=== PATIENT | male | born 1940 | race Caucasian/White ===

== ENCOUNTER 2018-03-22 02:13 | Inpatient (IN) | payer MEDICARE ==
[~2018-03-22] VITALS: Ht 167.6 cm; Wt 44.8 kg
[2018-03-22] MEDS ORDERED: RT-ALBUTEROL/IPRATROPIUM 3 ML (DUONEB) VIAL ONE (02:21)
--- NOTE | 2018-03-22 02:42 | ED General ---
General Stated Complaint: FALL, LEFT & RT KNEE PAIN Source of Information: Patient (LIMITED HISTORIAN), Family (DAUGHTER) History of Present Illness Date Seen by Provider: Mar 22, 2018 Time Seen by Provider: 02:14 Initial Comments PT ARRIVES VIA POV FROM [place]. PT REPORTEDLY "FELL" --NOT WITNESSED. WAS ASLEEP PT STATES HE THINKS HE GOT UP TO GET A DRINK, AND "BEEN SEEING DOUBLE" AND THEN THINKS HE "FELL" --STATES HE IS NOT SURE WHAT HAPPENED. STATES HE HURTS ALL OVER THINKS HE MIGHT HAVE HIT HIS RIBS, BUT IS NOT SURE. DOES C/O PAIN TO LEFT RIBS UNABLE TO LOCALIZE PAIN ANYWHERE ELSE. NO OTHER RELEVANT INFORMATION IS OBTAINABLE FROM PT IS NOT REALLY TALKING OR ANSWERING QUESTIONS. DAUGHTER IS HERE AND GIVES ALL INFORMATION SHE STATES THAT WHEN SHE GOT THERE, HE WAS BASICALLY ON HIS KNEES AND WAS WEDGED IN A FAIRLY SMALL SPACE BETWEEN THE BED AND A PIECE OF FURNITURE. SHE STATES THAT BASED ON HIS POSITION, IT DID NOT APPEAR THAT HE COULD HAVE HIT HIS HEAD ON ANYTHING DAUGHTER REPORTS THAT PT IS MOSTLY CHAIR-BOUND, BUT THE LAST 3-4 DAYS HE HAS HAD A SIGNIFICANT DECLINE OVERALL HAS NOT BEEN OUT OF BED MUCH AT ALL PT HAS NOT BEEN EATING THE LAST FEW DAYS AND HAS HAD MINIMAL FLUID INTAKE THE LAST FEW DAYS SHE STATES HE HAS HAD AN INCREASED COUGH AND IT HAS BEEN MORE PRODUCTIVE THE LAST FEW DAYS NO KNOWN FEVER PT WEARS HOME O2 AT 4L/NC AND THEY BROUGHT HIS PORTABLE O2 IN THE CAR, BUT FAMILY DOES NOT KNOW IF IT WAS TURNED ON/ WORKING ON THE WAY HERE O2 SAT IN 60'S ON ARRIVAL TO ER PT HAS HISTORY OF PULMONARY FIBROSIS DAUGHTER STATES VERY EMPHATICALLY THAT HE IS DNR/DNI AND NO AGGRESSIVE MEASURES OF ANY KIND ARE TO BE DONE SHE STATES 'HE HAS BEEN READY TO GO FOR A LONG TIME" PCP: FT. MARY ORSHELLIE ARBITRATOR: CORINNE HATFIELD Allergies and Home Medications Allergies Coded Allergies: Penicillins (Verified Allergy, Unknown, 03/22/18) iodine (Verified Allergy, Unknown, 03/22/18) Patient Home Medication List Home Medication List Reviewed: Yes Review of Systems Review of Systems Constitutional: see HPI, malaise, weakness, weight loss (USED TO WEIGHT 180 LBS --NOW WEIGHS LESS THAN 100 LBS. IS UNCLEAR HOW LONG THIS WEIGHT LOSS HAS BEEN GOING ON) Respiratory: see HPI, cough, short of breath Cardiovascular: No chest pain, No edema Gastrointestinal: see HPI; No abdominal pain; constipation, loss of appetite; No nausea, No vomiting Genitourinary: decreased output Musculoskeletal: see HPI Psychiatric/Neurological: Denies Headache, Denies Numbness, Denies Paresthesia Hematologic/Lymphatic: No Symptoms Reported Past Honmvdf-Tkvonm-Bmrerf Hx Patient Social History Alcohol Use: Denies Use Recreational Drug Use: No Smoking Status: Former Smoker Type Used: Cigarettes Recent Foreign Travel: No Contact w/Someone Who Travel: No Past Medical History Surgeries: Yes (BILATERAL ANKLE SURGERIES) Cardiac, CABG, Orthopedic Respiratory: Yes (PULMONARY FIBROSIS; HOME O2 AT 4L/NC CONTINUOUSLY) Cardiac: Yes Atrial Fibrillation, Coronary Artery Disease, Heart Attack, High Cholesterol, Hypertension Neurological: Yes Seizure Disorder Genitourinary: No Gastrointestinal: Yes Gastroesophageal Reflux Musculoskeletal: Yes (BILATERAL ANKLE SURGERY) Endocrine: No HEENT: No Psychosocial: No Integumentary: No Blood Disorders: No Physical Exam Vital Signs Vital Signs - First Documented 03/22/18 03/22/18 02:20 02:31 Temp 97.0 Pulse 110 Resp 24 B/P (MAP) 135/84 (101) Pulse Ox 93 O2 Delivery OxyMask O2 Flow Rate 4.00 Capillary Refill : Height, Weight, BMI Height: '" Weight: lbs. oz. kg; BMI Method: General Appearance: Cachetic (SEVERELY EMACIATED. ), Severe Distress (PATEL/PALE , SEVERELY DYSPNEIC, WITH DECREASED MENTATION, VERY LETHARGIC. ) HEENT: PERRL/EOMI Neck: Normal Inspection, Non Tender, Supple Respiratory: Accessory Muscle Use, Decreased Breath Sounds, Respiratory Distress, Other (TENDERNESS TO BILATERAL RIB AREAS) Cardiovascular: Irregularly Irregular, Tachycardia Gastrointestinal: Non Tender, Soft Back: Normal Inspection, No CVA Tenderness, No Vertebral Tenderness Extremity: No Pedal Edema, Other (DISTSAL MOTOR/SENSORY/VASCULAR INTACT. LEFT HIP AND PROXIMAL THIGH TENDERNESS.NO SHORTENING OR ROTATION. ) Neurologic/Psychiatric: No Motor/Sensory Deficits (GROSSLY INTACT, BUT LIMITED EXAM DUE TO RESPIRATORY DISTRESS AND DECREASED MENTATION. ), Other (LETHARGIC ON ARRIVAL. DECREASED MENTATION. ) Skin: Warm/Dry, Pallor (PATEL COLOR. ), Other (POOR TURGOR; NO EXTERNAL EVIDENCE OF TRAUMA) Focused Exam Lactate Level 03/22/18 02:25: Lactic Acid Level 4.07*H 03/22/18 05:06: Lactic Acid Level 0.98 Lactic Acid Level Laboratory Tests Test 03/22/18 05:06 Lactic Acid Level 0.98 MMOL/L (0.50-2.00) Progress/Results/Core Measures Suspected Sepsis SIRS Temperature: Pulse: Respiratory Rate: Laboratory Tests 03/22/18 02:25: White Blood Count 23.8H Blood Pressure / Mean: 03/22/18 02:25: Lactic Acid Level 4.07*H 03/22/18 05:06: Lactic Acid Level 0.98 Laboratory Tests 03/22/18 02:25: Creatinine 0.84, INR Comment 1.5H, Platelet Count 365, Total Bilirubin 0.6 Results/Orders Lab Results Laboratory Tests Test 03/22/18 02:25 03/22/18 02:38 03/22/18 05:06 Range/Units White Blood Count 23.8 H 4.3-11.0 10^3/uL Red Blood Count 4.13 L 4.35-5.85 10^6/uL Hemoglobin 13.6 13.3-17.7 G/DL Hematocrit 41 40-54 % Mean Corpuscular Volume 100 H 80-99 FL Mean Corpuscular Hemoglobin 33 25-34 PG Mean Corpuscular Hemoglobin Concent 33 32-36 G/DL Red Cell Distribution Width 12.7 10.0-14.5 % Platelet Count 365 130-400 10^3/uL Mean Platelet Volume 10.6 H 7.4-10.4 FL Neutrophils (%) (Auto) 87 H 42-75 % Lymphocytes (%) (Auto) 3 L 12-44 % Monocytes (%) (Auto) 10 0-12 % Eosinophils (%) (Auto) 0 0-10 % Basophils (%) (Auto) 0 0-10 % Neutrophils # (Auto) 20.8 H 1.8-7.8 X 10^3 Lymphocytes # (Auto) 0.6 L 1.0-4.0 X 10^3 Monocytes # (Auto) 2.4 H 0.0-1.0 X 10^3 Eosinophils # (Auto) 0.0 0.0-0.3 10^3/uL Basophils # (Auto) 0.0 0.0-0.1 10^3/uL Neutrophils % (Manual) 80 % Lymphocytes % (Manual) 3 % Monocytes % (Manual) 10 % Band Neutrophils 7 % Blood Morphology Comment NORMAL Prothrombin Time 18.1 H 12.2-14.7 SEC INR Comment 1.5 H 0.8-1.4 Activated Partial Thromboplast Time 35 24-35 SEC Sodium Level 142 135-145 MMOL/L Potassium Level 3.8 3.6-5.0 MMOL/L Chloride Level 99 98-107 MMOL/L Carbon Dioxide Level 29 21-32 MMOL/L Anion Gap 14 5-14 MMOL/L Blood Urea Nitrogen 15 7-18 MG/DL Creatinine 0.84 0.60-1.30 MG/DL Estimat Glomerular Filtration Rate > 60 BUN/Creatinine Ratio 18 Glucose Level 171 H 70-105 MG/DL Lactic Acid Level 4.07 *H 0.98 0.50-2.00 MMOL/L Calcium Level 9.3 8.5-10.1 MG/DL Corrected Calcium 9.9 8.5-10.1 MG/DL Magnesium Level 2.1 1.8-2.4 MG/DL Total Bilirubin 0.6 0.1-1.0 MG/DL Aspartate Amino Transf (AST/SGOT) 36 H 5-34 U/L Alanine Aminotransferase (ALT/SGPT) 27 0-55 U/L Alkaline Phosphatase 135 40-136 U/L Total Creatine Kinase 166 30-200 U/L Creatine Kinase MB 5.6 <6.6 NG/ML Troponin I 0.232 <0.028 NG/ML B-Type Natriuretic Peptide 197.3 H <100.0 PG/ML Total Protein 7.5 6.4-8.2 GM/DL Albumin 3.3 3.2-4.5 GM/DL Digoxin Level < 0.30 L 0.80-2.00 NG/ML Urine Color YELLOW Urine Clarity CLEAR Urine pH 5 5-9 Urine Specific [place] 1.020 1.016-1.022 Urine Protein 3+ H NEGATIVE Urine Glucose (UA) NEGATIVE NEGATIVE Urine Ketones NEGATIVE NEGATIVE Urine Nitrite NEGATIVE NEGATIVE Urine Bilirubin NEGATIVE NEGATIVE Urine Urobilinogen 1 NORMAL MG/DL Urine Leukocyte Esterase 1+ H NEGATIVE Urine RBC (Auto) 1+ H NEGATIVE Urine RBC 2-5 H /HPF Urine WBC 0-2 /HPF Urine Squamous Epithelial Cells 2-5 /HPF Urine Crystals PRESENT H /LPF Urine Amorphous Sediment FEW JESSICA URATES H /LPF Urine Bacteria TRACE /HPF Urine Casts NONE /LPF Urine Mucus MODERATE H /LPF Urine Culture Indicated NO Micro Results Microbiology 03/22/18 Influenza Types A,B Antigen (GIL) - Final, Complete My Orders Orders - MIRTA QUEZADA DO Albuterol/Ipra Inhalation Soln (Duoneb I (03/22/18 02:21) Saline Lock/Iv-Start (03/22/18 02:33) Ekg Tracing (03/22/18 02:33) Monitor-Rhythm Ecg Trace Only (03/22/18 02:33) BNP (03/22/18 02:33) Cbc With Automated Diff (03/22/18 02:33) Comprehensive Metabolic Panel (03/22/18 02:33) Creatine Kinase (03/22/18 02:33) Creatine Kinase Mb (03/22/18 02:33) Magnesium (03/22/18 02:33) Protime With Inr (03/22/18 02:33) Partial Thromboplastin Time (03/22/18 02:33) Troponin I (03/22/18 02:33) Ua Culture If Indicated (03/22/18 02:33) Chest 1 View, Ap/Pa Only (03/22/18 02:33) Pelvis (03/22/18 02:33) Rt Request For Service (03/22/18 02:33) Albuterol/Ipra Inhalation Soln (Duoneb I (03/22/18 02:45) Svn Small Volume Nebulizer (03/22/18 02:33) Catheter(Urinary) Insert & Ass 03,15 (03/22/18 02:37) Dilantin (Phenytoin) (03/22/18 02:41) Digoxin (03/22/18 02:25) Manual Differential (03/22/18 02:25) Saline Lock/Iv-Start (03/22/18 02:56) Lactated Ringers (Lr 1000 Ml Iv Solution (03/22/18 02:56) Ceftriaxone For Iv Use (Rocephin For I (03/22/18 03:45) Ct Chest/Abdomen/Pelvis Wo (03/22/18 03:31) Lactic Acid Analyzer (03/22/18 03:33) Blood Culture (03/22/18 03:33) Influenza A And B Antigens (03/22/18 03:33) Ceftriaxone For Iv Use (Rocephin For I (03/22/18 04:16) Ns (Ivpb) (Sodium Chloride 0.9% Ivpb Bag (03/22/18 04:16) Saline Lock/Iv-Start (03/22/18 05:27) Ns Iv 1000 Ml (Sodium Chloride 0.9%) (03/22/18 05:27) Medications Given in ED Current Medications Medications Dose Ordered Sig/Aiyana Route Start Time Stop Time Status Last Admin Dose Admin Albuterol/ Ipratropium 3 ml STK-MED ONCE .ROUTE 03/22/18 02:21 03/22/18 02:25 DC 03/22/18 02:31 3 ML Ceftriaxone Sodium 1000 mg/ Sodium Chloride 60 ml @ 100 mls/hr ONCE ONCE IV 03/22/18 03:45 03/22/18 04:39 DC 03/22/18 04:20 100 MLS/HR Lactated Ringer's 1,000 ml @ 0 mls/hr Q0M ONCE IV 03/22/18 02:56 03/22/18 02:57 DC 03/22/18 03:07 999 MLS/HR Vital Signs/I&O 03/22/18 03/22/18 02:20 02:31 Temp 97.0 Pulse 110 Resp 24 B/P (MAP) 135/84 (101) Pulse Ox 93 O2 Delivery OxyMask O2 Flow Rate 4.00 Capillary Refill : Progress Note : Progress Note INITIAL O2 SATS 60-65% ON ROOM AIR ON ARRIVAL PT VERY LETHARGIC AND REQUIRES MULTIPLE STAFF MEMBERS TO LIFT HIM AND PLACE HIM ON ER CART PT IN SEVERE RESPIRATORY DISTRESS, AND UNABLE TO REALLY TALK ON ARRIVAL AND WITH DECREASED MENTATION, CAN ONLY UTTER 1 OR 2 WORDS AT A TIME AND APPEARS SOMEWHAT CONFUSED ON ARRIVAL PT IMMEDIATELY PLACED ON O2 AT 10L VIA OXIMASK--O2 SATS IMMEDIATELY UP TO UPPER 90'S PT GIVEN DUONEB TREATMENT IMPROVEMENT IN MENTATION AND LESS DYSPNEIC AND PT ABLE TO TALK IN 2-4 WORD SENTENCES, AND PT NO LONGER APPEARS CONFUSED. PT HAS NO C/O PAIN AT ANY TIME DURING ER STAY ECG Initial ECG Impression Date: Mar 22, 2018 Initial ECG Impression Time: 02:23 Initial ECG Rate: 99 Initial ECG Rhythm: Normal Sinus (RBBB) Initial ECG Comparisson: No Previous ECG Available Diagnostic Imaging Comments CXR--FIBROSIS, RIGHT MID LUNG INFILTRATE, PENDING RADIOLOGIST REVIEW PELVIS--?ABNORMALITY LEFT HIP? PENDING RADIOLOGIST REVIEW CT CHEST / ABDOMEN/ PELVIS--NO FRACTURES, CHRONIC FIBROTIC CHANGES OF LUNGS; RIGHT MID LUNG INFILTRATE, POSSIBLE ASPIRATION, LARGE RECTAL FECAL IMPACTION 13 CM X 9.5 CM X 9.6 CM --PER [facility] VIA FAX AT [id number] Reviewed: Reviewed by [facility] (Admissions) [id number]--SPOKE WITH DR. WARD, HOSPITALIST, ACCEPTS PT FOR ADMIT. Impression Primary Impression: RIGHT SIDED PNEUMONIA Additional Impressions: Sepsis Acute and chronic respiratory failure Status post fall SEVERE HYPOXIA Emaciation Influenza B Pulmonary fibrosis Disposition: ADMITTED INPATIENT Condition: Improved Admissions Decision to Admit Reason: Admit from ER (General) Decision to Admit/Date: Mar 22, 2018 Time/Decision to Admit Time: 05:25 MIRTA QUEZADA DO Mar 22, 2018 02:42
[2018-03-22 02:44] LABS: BASOPHILS % (AUTO) 0 % (0-10); EOSINOPHILS % (AUTO) 0 % (0-10); HEMATOCRIT 41 % (40-54); HEMOGLOBIN 13.6 G/DL (13.3-17.7); LYMPHOCYTES # (AUTO) 0.6 X 10^3 (1.0-4.0); LYMPHOCYTES % (AUTO) 3 % (12-44); MEAN CORPUSCULAR HEMOGLOBIN 33 PG (25-34); MEAN CORPUSCULAR HGB CONC 33 G/DL (32-36); MEAN CORPUSCULAR VOLUME 100 FL (80-99); MEAN PLATELET VOLUME 10.6 FL (7.4-10.4); MONOCYTES # (AUTO) 2.4 X 10^3 (0.0-1.0); MONOCYTES % (AUTO) 10 % (0-12); NEUTROPHILS # (AUTO) 20.8 X 10^3 (1.8-7.8); NEUTROPHILS % (AUTO) 87 % (42-75); PLATELET COUNT 365 10^3/uL (130-400); RED CELL DISTRIBUTION WIDTH 12.7 % (10.0-14.5); WHITE BLOOD COUNT 23.8 10^3/uL (4.3-11.0)
[2018-03-22] MEDS ORDERED: RT-ALBUTEROL/IPRATROPIUM 3 ML (DUONEB) VIAL INH ONE (02:45)
[2018-03-22 02:46] LABS: BILIRUBIN,URINE NEGATIVE (NEGATIVE); CLARITY,URINE CLEAR; COLOR,URINE YELLOW; GLUCOSE, URINE (UA) NEGATIVE (NEGATIVE); KETONES,URINE NEGATIVE (NEGATIVE); LEUKOCYTE ESTERASE ,URINE 1+ (NEGATIVE); NITRITE,URINE NEGATIVE (NEGATIVE); PH,URINE 5 (5-9); PROTEIN,URINE 3+ (NEGATIVE); UROBILINOGEN,URINE 1 MG/DL (NORMAL)
[2018-03-22 02:54] LABS: BACTERIA,URINE TRACE /HPF; WBC,URINE 0-2 /HPF
[2018-03-22 02:55] LABS: AMORPHOUS SEDIMENT,UR FEW AMOR URATES /LPF
[2018-03-22 02:56] LABS: ALANINE AMINOTRANSFERASE 27 U/L (0-55); ALBUMIN 3.3 GM/DL (3.2-4.5); ALKALINE PHOSPHATASE 135 U/L (40-136); BILIRUBIN,TOTAL 0.6 MG/DL (0.1-1.0); BUN/CREATININE RATIO 18; CALCIUM 9.3 MG/DL (8.5-10.1); CARBON DIOXIDE 29 MMOL/L (21-32); CHLORIDE 99 MMOL/L (98-107); CREATINE KINASE 166 U/L (30-200); CREATININE SERUM 0.84 MG/DL (0.60-1.30); GFR ESTIMATED > 60; GLUCOSE 171 MG/DL (70-105); MAGNESIUM 2.1 MG/DL (1.8-2.4); POTASSIUM 3.8 MMOL/L (3.6-5.0); SODIUM 142 MMOL/L (135-145); TOTAL PROTEIN 7.5 GM/DL (6.4-8.2)
[2018-03-22] MEDS ORDERED: LACTATED RINGERS 1,000 ML IV ONE (02:56)
[2018-03-22 03:00] LABS: INR 1.5 (0.8-1.4); PROTHROMBIN TIME PATIENT 18.1 SEC (12.2-14.7)
[2018-03-22 03:03] LABS: CREATINE KINASE MB 5.6 NG/ML (<6.6)
[2018-03-22 03:09] LABS: BAND NEUTROPHILS 7 %; LYMPHOCYTES % (MANUAL) 3 %; MONOCYTES % (MANUAL) 10 %; NEUTROPHILS % (MANUAL) 80 %; RBC MORPH NORMAL
[2018-03-22] MEDS ORDERED: cefTRIAXone 1,000 MG IV (ROCEPHIN) VIAL ONE (04:16)
[2018-03-22] MEDS ORDERED: NS (IVPB) 50 ML ONE (04:16)
[2018-03-22] MEDS: cefTRIAXone FOR IV USE 1,000 MG in NS (IVPB) 50 ML IV ONE ×2 (04:20→04:38)
[2018-03-22] MEDS ORDERED: NS IV 1000 ML 1,000 ML IV ONE (05:27)
--- NOTE | 2018-03-22 06:13 | Diagnostic Imaging Report ---
PROCEDURE: CT chest, abdomen, and pelvis without contrast. TECHNIQUE: Multiple contiguous axial images were obtained through the chest, abdomen, and pelvis without the use of intravenous contrast. INDICATION: Trauma, fall. COMPARISON: Chest radiograph of earlier the same day FINDINGS: CT CHEST: No endoluminal nodule within the trachea. A small amount of retained secretions are present. Diffuse pulmonary fibrosis is present and greatest in the lung bases. Superimposed airspace consolidations are present in the right upper lobe. No pleural effusion or pneumothorax. No axillary lymphadenopathy. No mediastinal, discrete hilar or juxtaphrenic lymphadenopathy. Heart is mildly enlarged without pericardial effusion. Extensive coronary artery calcifications are present and status post CABG. No displaced rib fractures. No compression deformity within the thoracic vertebrae. CT ABDOMEN AND PELVIS: Assessment of the abdominal viscera is very limited by lack of IV contrast and intraperitoneal fat. The unenhanced liver, spleen and pancreas are grossly normal. Assessment of the pancreas is very limited on this exam. No adrenal mass. No renal or ureteral stones. No obstructive uropathy. Urinary bladder is decompressed by a Arceo catheter. A large volume of stool is present with the rectum which could relate to fecal impaction. No dilated loops of bowel to indicate bowel obstruction. No definitive lymphadenopathy although assessment is very limited. No compression deformity within the lumbar vertebrae. No fracture in the proximal femurs. No insufficiency fracture within the sacral ala. IMPRESSION: CHEST: 1. No acute traumatic injury in the chest. No rib fractures. 2. Severe pulmonary fibrosis with superimposed airspace consolidations in the right upper lobe. Findings are likely due to pneumonia, but an acute exacerbation of interstitial lung disease could also give this appearance. ABDOMEN AND PELVIS: 1. No evidence of acute traumatic injury in the abdomen or pelvis by limited noncontrast examination. 2. Fecal impaction. 3. Findings are in agreement with the preliminary report. Dictated by: Dictated on workstation # [id number]
--- NOTE | 2018-03-22 06:50 | NUR ---
PELON MAXWELL admitted to room 411-1, with an admitting diagnosis of PNEUMONIA, HYPOXIA/ACUTE ON CHRONIC RESPIRATORY FAILURE, PULMONARY FIBROSIS, RECTAL IMPACTION, GENERALIZED WEAKNESS, S/P FALLS, SEPSIS, INFLUENZA B, on 03/22/18 from ED via CART, accompanied by STAFF, , AND SON IN LAW.PELON MAXWELL introduced to surroundings, call light, bed controls, phone, TV, temperature control, lights, meal times, smoking policy, visitor policy, side rail policy, bathrooms and showers. Patient Rights given to patient in the handbook. PELON MAWXELL verbalizes understanding that [facility] is not responsible for the loss or damage to any personal effects or valuables that are kept in the patients possession during their hospitalization. THE PATIENT'S PLAN OF CARE WAS DISCUSSED WITH THE PATIENT, HE DENIES ANY QUESTIONS OR CONCERNS.
--- NOTE | 2018-03-22 06:58 | Diagnostic Imaging Report ---
INDICATION: Fall with shortness of air. COMPARISON: None available. FINDINGS: Coarse interstitial opacities in the lung bases are compatible with pulmonary fibrosis. There is superimposed consolidation in the right midlung. Heart is enlarged. No pneumothorax. No pleural effusion. IMPRESSION: 1. Probable pneumonia superimposed on pulmonary fibrosis. Dictated by: Dictated on workstation # [id number]
--- NOTE | 2018-03-22 06:59 | Diagnostic Imaging Report ---
INDICATION: Pain after fall. COMPARISON: None available. TECHNIQUE: Single AP view of the pelvis. FINDINGS: No acute fracture in the proximal femurs. No hip dislocation. No diastases of the symphysis pubis or SI joints. Assessment for fracture of the osseous pelvis is very limited due to extensive overlying bowel gas and stool. IMPRESSION: No displaced fracture or traumatic diastases. Dictated by: Dictated on workstation # [id number]
[2018-03-22 07:00] VITALS: BP 112/76
[2018-03-22 07:42] VITALS: BP 112/76
--- NOTE | 2018-03-22 10:20 | Pulmonary Consultation ---
History of Present Illness History of Present Illness Date of Consultation 03/22/18 10:17 Time Seen by Provider: 13:12 Date of Admission History of Present Illness 77YO with hx of severe oxygen dependent COPD/pulmonary fibrosis presented to ED s/p unwitnessed fall no LOC and did not hit his heads. Pt complains of left rib pain. Pt is mostly chair bound however over the last 3-4 days has had a significant decline. PT has had increased productive cough over the last few days. I am consulted for pulmonary management. Allergies and Home Medications Allergies Coded Allergies: Penicillins (Verified Allergy, Unknown, 03/22/18) iodine (Verified Allergy, Unknown, 03/22/18) Past Znwupwj-Emcmjh-Vcsnga Hx Patient Social History Alcohol Use: Denies Use Recreational Drug Use: No Smoking Status: Former Smoker Type Used: Cigarettes Recent Foreign Travel: No Contact w/Someone Who Travel: No Recent Infectious Disease Expo: No Recent Hopitalizations: No Immunizations Up To Date Date of Influenza Vaccine: Jan 18, 2018 Seasonal Allergies Seasonal Allergies: No Past Medical History Surgeries: Yes (BILATERAL ANKLE SURGERIES) Cardiac, CABG, Orthopedic Respiratory: Yes (PULMONARY FIBROSIS; HOME O2 AT 4L/NC CONTINUOUSLY) Pulmonary Fibrosis Cardiac: Yes Atrial Fibrillation, Coronary Artery Disease, Heart Attack, High Cholesterol, Hypertension Neurological: Yes Seizure Disorder Genitourinary: No Gastrointestinal: Yes Gastroesophageal Reflux Musculoskeletal: Yes (BILATERAL ANKLE SURGERY) Endocrine: No HEENT: No Cancer: No Psychosocial: No Integumentary: No Blood Disorders: No Sepsis Event Evaluation Height, Weight, BMI Height: 5'6.00" Weight: 97lbs. 8.0oz. 44.152150qq; 15.7 BMI Method:Estimated Exam Exam Vital Signs Date Time Temp Pulse Resp B/P (MAP) Pulse Ox O2 Delivery O2 Flow Rate FiO2 03/22/18 08:33 OxyMask 6.00 03/22/18 07:42 97.2 78 20 112/76 99 OxyMask 6.00 6.00 03/22/18 07:00 97.2 78 20 112/76 (88) 99 OxyMask 6.00 03/22/18 06:50 97.0 79 22 97/65 (76) 98 OxyMask 6.00 03/22/18 02:31 93 OxyMask 4.00 03/22/18 02:20 97.0 110 24 135/84 (101) I & O 03/22/18 07:00 Intake Total 1060 ml Balance 1060 ml Height & Weight Height: 5'6.00" Weight: 97lbs. 8.0oz. 44.252483zc; 15.7 BMI Method:Estimated General Appearance: Cachetic (SEVERELY EMACIATED. ), Severe Distress (PATEL/PALE , SEVERELY DYSPNEIC, WITH DECREASED MENTATION, VERY LETHARGIC. ) HEENT: PERRL/EOMI Neck: Normal Inspection, Non Tender, Supple Respiratory: Accessory Muscle Use, Decreased Breath Sounds, Respiratory Distress, Other (TENDERNESS TO BILATERAL RIB AREAS) Cardiovascular: Irregularly Irregular, Tachycardia Capillary Refill: Less Than 3 Seconds Extremity: No Pedal Edema, Other (DISTSAL MOTOR/SENSORY/VASCULAR INTACT. LEFT HIP AND PROXIMAL THIGH TENDERNESS.NO SHORTENING OR ROTATION. ) Neurologic/Psychiatric: No Motor/Sensory Deficits (GROSSLY INTACT, BUT LIMITED EXAM DUE TO RESPIRATORY DISTRESS AND DECREASED MENTATION. ), Other (LETHARGIC ON ARRIVAL. DECREASED MENTATION. ) Skin: Warm/Dry, Pallor (PATEL COLOR. ), Other (POOR TURGOR; NO EXTERNAL EVIDENCE OF TRAUMA) Results Lab Laboratory Tests 03/22/18 02:25 Assessment/Plan Assessment/Plan Acute on chronic respiratory failure Hx of severe oxygen dependent pulmonary fibrosis -Follows with Kip greenfield Sepsis with pneumonia and influenza is positive -IVF -Rocephin, and azithromycin S/p fall weakness debility PAUL MARIA DO Mar 22, 2018 10:20
[2018-03-22 10:30] VITALS: BP 104/59
[2018-03-22] MEDS ORDERED: CATHETER FLUSH 10 ML SYR IV PRN (11:00)
[2018-03-22] MEDS ORDERED: ACETAMINOPHEN 500 MG TAB (TYLENOL) PO PRN (11:00)
[2018-03-22] MEDS ORDERED: AZITHROMYCIN 500 MG/NS 250 ML IVPB IV NR ×2 (11:00)
[2018-03-22] MEDS: OSELTAMIVIR 30 MG (TAMIFLU) CAPSULE PO SCH ×2 (11:11→21:56)
[2018-03-22] MEDS: methylPREDNISolone 125 MG (Solu-MEDROL) VIAL IV SCH ×3 (11:11→23:42)
[2018-03-22] MEDS: D5 1/2 NS W/KCL 20 MEQ/L 1,000 ML IV SCH ×2 (11:11→21:56)
[2018-03-22] MEDS ORDERED: PHEN100C4 PO (13:38)
[2018-03-22] MEDS ORDERED: DIGO125T PO (13:38)
[2018-03-22] MEDS ORDERED: SIMV40TA4 PO (13:38)
[2018-03-22] MEDS ORDERED: PHEN50TA4 PO (13:38)
[2018-03-22 14:30] VITALS: BP 92/52
--- NOTE | 2018-03-22 14:33 | History & Physical-Hospitalist ---
History of Present Illness HPI/Chief Complaint Pt is a 77yoCM with a PMH of pulmonary fibrosis who presented to the ER due to fall and hypoxia. He states he fell yesterday and was wedged between the wall and a chair and unable to get up. When his daughter found him she called EMS who found to him to have oxygen saturations in the 60s and brought him to the ER for evaluation. He states he is feeling better today but still short of breath with cough and sputum. He appears to be very short of breath but when asked about this he states that he is just "excited" from talking. His only other concern is getting to eat something. Source: patient, family Exam Limitations: no limitations Date Seen 03/22/18 Time Seen by a Provider: 09:30 Attending Physician Dagoberto Ingram MD PCP Gifty Olivares MD Referring Physician Date of Admission Mar 22, 2018 at 05:25 Home Medications & Allergies Home Medications Reviewed patient Home Medication Reconciliation performed by pharmacy medication reconciliations tool maintenance technician and/or nursing. Patients Allergies have been reviewed. Allergies Allergies Coded Allergies Penicillins (Verified Allergy, Unknown, 03/22/18) iodine (Verified Allergy, Unknown, 03/22/18) Past Gcdlqkk-Yugckf-Ifqpxm Hx Past Med/Social Hx: Reviewed Nursing Past Med/Soc Hx Patient Social History Marrital Status: Employed/Student: retired Alcohol Use: Denies Use Recreational Drug Use: No Smoking Status: Former Smoker Type Used: Cigarettes Recent Foreign Travel: No Contact w/other who traveled: No Recent Hopitalizations: No Recent Infectious Disease Expo: No Immunizations Up To Date Date of Influenza Vaccine: Jan 18, 2018 Seasonal Allergies Seasonal Allergies: No Past Medical History Surgeries: Cardiac, CABG, Orthopedic Respiratory: Pulmonary Fibrosis (chronic 4lpm oxygen need) Cardiac: Atrial Fibrillation, Coronary Artery Disease, Heart Attack, High Cholesterol, Hypertension Neurological: Seizure Disorder Gastrointestinal: Gastroesophageal Reflux History of Blood Disorders: No Family History Reviewed Nursing Family Hx No Pertinent Family Hx Review of Systems Constitutional: No fever EENTM: no symptoms reported Respiratory: cough, dyspnea on exertion, phlegm, short of breath Cardiovascular: No chest pain Gastrointestinal: no symptoms reported; No abdominal pain Genitourinary: no symptoms reported Musculoskeletal: no symptoms reported Skin: no symptoms reported Psychiatric/Neurological: No Symptoms Reported Physical Exam Physical Exam Vital Signs Vital Signs - First Documented 03/22/18 03/22/18 02:20 02:31 Temp 97.0 Pulse 110 Resp 24 B/P (MAP) 135/84 (101) Pulse Ox 93 O2 Delivery OxyMask O2 Flow Rate 4.00 Capillary Refill : Less Than 3 Seconds Height, Weight, BMI Height: 5'6.00" Weight: 97lbs. 8.0oz. 44.433094pw; 15.7 BMI Method:Estimated General Appearance: Chronically ill, Cachetic, Mild Distress HEENT: PERRL/EOMI, Moist Mucous Membranes; No Scleral Icterus (L), No Scleral Icterus (R) Neck: Non Tender, Supple Respiratory: Accessory Muscle Use, Decreased Breath Sounds Cardiovascular: Regular Rate, Rhythm, No JVD, No Murmur Gastrointestinal: Normal Bowel Sounds, Non Tender, Soft Extremity: Normal Capillary Refill, No Calf Tenderness Neurologic/Psychiatric: Alert, Oriented x3, No Motor/Sensory Deficits, Normal Mood/Affect Skin: Normal Color, Warm/Dry Results Results/Procedures Labs Laboratory Tests 03/22/18 02:25 03/23/18 06:45 Patient resulted labs reviewed. Imaging: Reviewed Imaging Report Assessment/Plan Admission Diagnosis acute hypoxic respiratory failure, influenza Admission Status: Inpatient Order (span 2 midnights) Reason for Inpatient Admission: needs IV abx, oxygen, pulm consult, comorbidities will necessitate two midnights Diagnosis/Problems Diagnosis/Problems (1) Acute and chronic respiratory failure Status: Acute Assessment & Plan: On 6lpm currently DNR Pulm consulted, appreciate recs (2) CAP (community acquired pneumonia) Status: Acute Assessment & Plan: Rocephin and Azithromycin ordered Lactic acidosis likely from hypoxia and not sepsis Cultures ordered and pending Mildly hypotensive at baseline Qualifiers: Laterality: right Lung location: middle lobe of lung Qualified Codes: J18.1 - Lobar pneumonia, unspecified organism (3) Influenza B Status: Acute Assessment & Plan: Continue tamilfu Droplet precautions (4) Pulmonary fibrosis Status: Acute Assessment & Plan: baseline 4lpm NC Pulm consulted, appreciate recs Continue solu-medrol cachetic likely from pulm fibrosis Initiated discussion about goals of care and comfort measures but patient quickly changed subject Will continue discussion Palliative care consulted Clinical Quality Measures DVT/VTE Risk/Contraindication: Risk Factor Score Per Nursin RFS Level Per Nursing on Admit: 4+=Very High SRIDEVI BROWN MD Mar 22, 2018 14:33
[2018-03-22 16:02] VITALS: BP 90/58
[2018-03-22 19:12] VITALS: BP 102/52
--- NOTE | 2018-03-22 22:30 | NUR ---
GAVE PT A SOAP SUDS ENEMA. 1000CC INSERTED. PT HAD 1 LARGE HARD BM.
[2018-03-23 00:44] VITALS: BP 102/51
[2018-03-23 04:25] VITALS: BP 98/50
--- NOTE | 2018-03-23 05:30 | NUR ---
PT RECEIVED ANOTHER SOAP SUDS ENEMA AT 0500. 1000CC INSERTED. PT HAD SMALL HARD BM WITH LOTS OF GAS.
[2018-03-23] MEDS: methylPREDNISolone 125 MG (Solu-MEDROL) VIAL IV SCH (05:39)
[2018-03-23 07:14] LABS: BASOPHILS % (AUTO) 0 % (0-10); EOSINOPHILS % (AUTO) 0 % (0-10); HEMATOCRIT 37 % (40-54); HEMOGLOBIN 12.2 G/DL (13.3-17.7); LYMPHOCYTES % (AUTO) 6 % (12-44); MEAN CORPUSCULAR HEMOGLOBIN 33 PG (25-34); MEAN CORPUSCULAR HGB CONC 33 G/DL (32-36); MEAN CORPUSCULAR VOLUME 101 FL (80-99); MEAN PLATELET VOLUME 10.3 FL (7.4-10.4); MONOCYTES # (AUTO) 0.8 X 10^3 (0.0-1.0); MONOCYTES % (AUTO) 5 % (0-12); NEUTROPHILS % (AUTO) 88 % (42-75); PLATELET COUNT 299 10^3/uL (130-400); RED CELL DISTRIBUTION WIDTH 12.7 % (10.0-14.5); WHITE BLOOD COUNT 15.8 10^3/uL (4.3-11.0)
[2018-03-23 07:33] LABS: ALANINE AMINOTRANSFERASE 31 U/L (0-55); ALKALINE PHOSPHATASE 116 U/L (40-136); BILIRUBIN,TOTAL 0.3 MG/DL (0.1-1.0); BUN/CREATININE RATIO 18; CALCIUM 8.9 MG/DL (8.5-10.1); CARBON DIOXIDE 26 MMOL/L (21-32); CHLORIDE 102 MMOL/L (98-107); GFR ESTIMATED > 60; GLUCOSE 147 MG/DL (70-105); POTASSIUM 4.1 MMOL/L (3.6-5.0); SODIUM 138 MMOL/L (135-145); TOTAL PROTEIN 6.7 GM/DL (6.4-8.2)
[2018-03-23 08:10] VITALS: BP 91/54
[2018-03-23] MEDS: OSELTAMIVIR 30 MG (TAMIFLU) CAPSULE PO SCH ×2 (08:18→20:18)
[2018-03-23] MEDS: AZITHROMYCIN 250 MG TAB (ZITHROMAX) PO SCH (08:18)
[2018-03-23] MEDS: cefTRIAXone 1 GM/NS 50 ML IVPB IV SCH ×2 (08:19)
[2018-03-23] MEDS ORDERED: MULT-178 PO (09:23)
[2018-03-23] MEDS ORDERED: LANS30CA PO (09:23)
[2018-03-23] MEDS ORDERED: DIPH25CA79 PO (09:23)
[2018-03-23] MEDS ORDERED: OMG1KC PO (09:23)
[2018-03-23] MEDS ORDERED: ASPI325T32 PO (09:23)
[2018-03-23] MEDS ORDERED: METO-370 PO (09:23)
[2018-03-23] MEDS ORDERED: FERR325T5 PO (09:23)
--- NOTE | 2018-03-23 10:00 | NUR ---
ENEMA GIVEN TO PATIENT. SMALL SOFT BOWEL MOVEMENT NOTED BEFORE ENEMA ADMINISTRATION. ENEMA GIVEN WITH CLEAR RESULT.
--- NOTE | 2018-03-23 10:20 | Pulmonary Progress Note ---
DAVIDBRYAN Mcnally STUDENT 03/23/18 1020: Subjective Date Seen by a Provider: Mar 23, 2018 Time Seen by a Provider: 10:15 Subjective/Events-last exam Patient was confused this morning. He could not recall location or president. He described getting up in the night and walking down the [place] and finding his daughter. Nursing stated that he tried getting up but did not go down the [place] to her knowledge. He denied increased SOB and stated that he is feeling much better. He feels almost back to his baseline. Review of Systems General: No Chills, No Night Sweats; Fatigue HEENT: No Head Aches, No Sore Throat Pulmonary: No Dyspnea, No Cough Cardiovascular: No: Chest Pain, Palpitations, Edema Gastrointestinal: No: Nausea, Vomiting, Abdominal Pain Neurological: Weakness, Confusion Sepsis Event Evaluation Height, Weight, BMI Height: 5'6.00" Weight: 99lbs. 1.6oz. 44.945564kk; 15.7 BMI Method:Estimated Focused Exam Lactate Level 03/22/18 02:25: Lactic Acid Level 4.07*H 03/22/18 05:06: Lactic Acid Level 0.98 Exam Exam Vital Signs Date Time Temp Pulse Resp B/P (MAP) Pulse Ox O2 Delivery O2 Flow Rate FiO2 03/23/18 08:10 97.9 62 22 91/54 (66) 100 Nasal Cannula 5.00 03/23/18 07:00 44 03/23/18 04:25 99.3 66 20 98/50 (66) 97 Nasal Cannula 5.00 03/23/18 01:00 50 03/23/18 00:44 98.0 62 20 102/51 (68) 96 Nasal Cannula 5.00 03/22/18 20:00 Nasal Cannula 6.00 03/22/18 19:12 99.0 65 20 102/52 (69) 97 Nasal Cannula 5.00 03/22/18 19:00 69 03/22/18 16:02 99.1 68 18 90/58 (69) 97 Nasal Cannula 5.00 03/22/18 14:46 75 03/22/18 14:30 99.4 79 18 92/52 (65) 97 Nasal Cannula 5.00 03/22/18 10:30 98.8 74 18 104/59 (74) 98 Nasal Cannula 5.00 I & O 03/23/18 07:00 Intake Total 1805 ml Output Total 800 ml Balance 1005 ml Height & Weight Height: 5'6.00" Weight: 99lbs. 1.6oz. 44.017576lz; 15.7 BMI Method:Estimated General Appearance: Chronically ill, Cachetic, Mild Distress HEENT: PERRL/EOMI, Moist Mucous Membranes; No Scleral Icterus (L), No Scleral Icterus (R) Neck: Non Tender, Supple Respiratory: No Accessory Muscle Use, No Respiratory Distress, Decreased Breath Sounds Cardiovascular: Regular Rate, Rhythm, No Edema, No JVD, No Murmur Capillary Refill: Less Than 3 Seconds Gastrointestinal: normal bowel sounds, soft Extremity: Normal Capillary Refill, No Calf Tenderness, No Pedal Edema Neurologic/Psychiatric: Alert, Oriented x3, No Motor/Sensory Deficits, Normal Mood/Affect Skin: Normal Color, Warm/Dry Results Lab Laboratory Tests 03/22/18 02:25 03/23/18 06:45 Assessment/Plan Assessment/Plan Acute on chronic respiratory failure -Oxygen currently on 5L with 100% sat -On 4L at home Hx of severe oxygen dependent pulmonary fibrosis -Follows with [facility] Sepsis with RUL pneumonia and influenza is positive -IVF -Rocephin, and azithromycin and tamiflu -WBC count trending down Macrocytic anemia, stable -Monitor Bradycardia, hypotension -This is baseline per patient S/p fall -Fall precautions weakness, debility, confusion -Monitor PAUL MARIA DO 03/23/18 1157: Subjective Time Seen by a Provider: 11:48 Subjective/Events-last exam Pt is confused with Sp02 100% on 5 liters. Exam Exam General Appearance: Chronically ill, Cachetic, Mild Distress HEENT: PERRL/EOMI, Moist Mucous Membranes; No Scleral Icterus (L), No Scleral Icterus (R) Neck: Non Tender, Supple Respiratory: No Accessory Muscle Use, No Respiratory Distress, Decreased Breath Sounds Cardiovascular: Regular Rate, Rhythm, No Edema, No JVD, No Murmur Gastrointestinal: normal bowel sounds, soft Extremity: Normal Capillary Refill, No Calf Tenderness, No Pedal Edema Neurologic/Psychiatric: Alert, Oriented x3, No Motor/Sensory Deficits, Normal Mood/Affect Skin: Normal Color, Warm/Dry Assessment/Plan Assessment/Plan Acute on chronic respiratory failure -Oxygen currently on 5L with 100% sat - titrate oxygen as tolerated -On 4L at home Hx of severe oxygen dependent pulmonary fibrosis -Follows with K[facility] Sepsis with RUL pneumonia and influenza is positive -IVF -Rocephin, and azithromycin and tamiflu -WBC count trending down Macrocytic anemia, stable -Monitor Bradycardia, hypotension -This is baseline per patient S/p fall -Fall precautions weakness, debility, confusion -Monitor MAK-BRYAN VALLECILLO Mar 23, 2018 10:20 PAUL MARIA DO Mar 23, 2018 11:57
--- NOTE | 2018-03-23 10:27 | NUR ---
SPOKE WITH THE PATIENTS DAUGHTER JESSI THIS MORNING. SHE STATES HIS MED LIST AND BOTTLES ARE IN HIS ROOM, SHE DOES NOT HELP WITH THE DAILY ADMINISTRATION OF HIS MEDS SHE STATES HE HANDLES THEM HIMSELF. I HAD A LIST FAXED OVER FROM [facility] WELL HIS OFFICE AT [facility] AND COMPARED WITH THE BOTTLES IN HIS ROOM AND HIS HOME MED LIST. HE STATES HE IS NOT TAKING THE MULTIVITAMIN OR THE CELEXA HE HAS WITH HIM. THE CELEXA WAS FILLED IN JUNE AND HE STATES HE JUST HAS NOT GOTTEN RID OF THE LEFTOVER PILLS. HIS MED LIST IS FOLLOWS: AM: FISH OIL (NO LONGER TAKING) ASPIRIN 325MG DAILY MULTIVITAMIN (NO LONGER TAKING) IRON 325MG DAILY METOPROLOL SUCCINATE 50MG DAILY (LAST FILLED #90 11-20-17) LANSOPRAZOLE 30MG DAILY (LAST FILLED #90 11-20-17) HS: SIMVASTATIN 40MG DIGOXIN 125MCG HS MIRTAZAPINE 25MG (NO LONGER TAKING, LAST FILLED #30 11-10-17) DILANTIN 100MG 3 HS DILANTIN 50MG HS OTHER MEDICATION LIST ON HIS CHART LISTS BENADCHUL LOYDA, HE STATES HE RARELY TAKES THIS. I DID NOT INCLUDE IT ON THE MED REC AT THIS TIME.
--- NOTE | 2018-03-23 10:55 | Progress Note-Hospitalist ---
Subjective HPI/CC On Admission Date Seen by Provider: Mar 23, 2018 Time Seen by Provider: 10:51 Pt is a 77yoCM with a PMH of pulmonary fibrosis who presented to the ER due to fall and hypoxia. He states he fell yesterday and was wedged between the wall and a chair and unable to get up. When his daughter found him she called EMS who found to him to have oxygen saturations in the 60s and brought him to the ER for evaluation. He states he is feeling better today but still short of breath with cough and sputum. He appears to be very short of breath but when asked about this he states that he is just "excited" from talking. His only other concern is getting to eat something. Subjective/Events-last exam Pt reports feeling much better today. as been up in chair and up walking and doing well. Focused Exam Lactate Level 03/22/18 02:25: Lactic Acid Level 4.07*H 03/22/18 05:06: Lactic Acid Level 0.98 Objective Exam Vital Signs Vital Signs Date Time Temp Pulse Resp B/P (MAP) Pulse Ox O2 Delivery O2 Flow Rate FiO2 03/23/18 13:00 46 03/23/18 11:29 98.2 20 131/64 (86) 99 Nasal Cannula 5.00 Capillary Refill : Less Than 3 Seconds General Appearance: Chronically ill, Cachetic Respiratory: Lungs Clear, No Respiratory Distress Cardiovascular: Regular Rate, Rhythm, No Murmur Gastrointestinal: Normal Bowel Sounds, Non Tender, Soft Extremity: No Calf Tenderness, No Pedal Edema Neurologic/Psychiatric: Alert, Oriented x3 Results/Procedures Lab Laboratory Tests 03/23/18 06:45 Patient resulted labs reviewed. Imaging: Reviewed Imaging Report Assessment/Plan Assessment and Plan Assess & Plan/Chief Complaint Influenza and PNA Diagnosis/Problems Diagnosis/Problems (1) Acute and chronic respiratory failure Status: Acute Assessment & Plan: Improving On 5lpm currently DNR Pulm consulted, appreciate recs (2) Influenza B Status: Acute Assessment & Plan: Continue tamilfu Droplet precautions (3) CAP (community acquired pneumonia) Status: Acute Assessment & Plan: Rocephin and Azithromycin ordered Cultures ordered and pending Mildly hypotensive; at baseline Qualifiers: Laterality: right Lung location: middle lobe of lung Qualified Codes: J18.1 - Lobar pneumonia, unspecified organism (4) Pulmonary fibrosis Status: Acute Assessment & Plan: baseline 4lpm NC Pulm consulted, appreciate recs Continue solu-medrol cachetic likely from pulm fibrosis Palliative care consulted Clinical Quality Measures DVT/VTE Risk/Contraindication: Risk Factor Score Per Nursin RFS Level Per Nursing on Admit: 4+=Very High SRIDEVI BROWN MD Mar 23, 2018 10:55
[2018-03-23 11:29] VITALS: BP 131/64
--- NOTE | 2018-03-23 13:42 | NUR ---
PALLIATIVE CARE RN to room to see patient and talk with him and his family. Introduced self and educated the family on Hospice and it's benefits. Patient and his are interested in at least talking with a couple of hospices. Patient is able to make his own decisions at this time Brochures delivered and they will make arrangements once they have spoken to the DPOA.
--- NOTE | 2018-03-23 14:01 | NUR ---
Pastoral care visit.
--- NOTE | 2018-03-23 15:33 | NUR ---
FAMILY STATES PATIENT HAS NOT SLEPT WELL AND EVERY TIME THE PATIENT IS ABOUT TO FALL ASLEEP HE TRIES TO CLIMB OUT OF BED AND IS SEEING DOUBLE. DR. BROWN NOTIFIED AND AGREES TO PUT ORDERS IN FOR MEDICATION THAT MIGHT HELP THE PATIENT REST.
[2018-03-23] MEDS: D5 1/2 NS W/KCL 20 MEQ/L 1,000 ML IV SCH (15:54)
[2018-03-23] MEDS ORDERED: morphine INJ 4 MG/ML 1 ML (VIAL/SYRINGE) IVP PRN ×2 (16:15→19:45)
[2018-03-23 16:55] VITALS: BP 121/52
[2018-03-23 20:30] VITALS: BP 126/62
[2018-03-24] VITALS: BP 135/70
[2018-03-24] MEDS: morphine INJ 4 MG/ML 1 ML (VIAL/SYRINGE) IVP PRN ×4 (00:29→03:41)
[2018-03-24] MEDS: LORazepam INJ 2 MG/ML (ATIVAN) VIAL IVP PRN ×6 (03:00→19:00)
[2018-03-24] MEDS: RT-ALBUTEROL/IPRATROPIUM 3 ML (DUONEB) VIAL INH SCH ×3 (03:15→11:13)
--- NOTE | 2018-03-24 03:21 | NUR ---
[address] WARD TO REPORT THAT PT O2 DROPPED TO 82 AND RESPIRATIONS WERE ABOVE 30, THAT PT WAS RESTLESS AND EXPERIENCING AIR HUNGER. DR WARD GAVE TELEPHONE ORDER OF MORPHINE INCREASED TO 1MG Q1H PRN. 0243 THIS RN FOUND AN ORDER THAT WAS MISSED ON ADMISSION FOR MAT PROTOCOL. RT WAS NOTIFIED. PT'S O2 SATS WERE 70'S TO 80'S WHEN RT ARRIVED. RT APPLIED BIPAP. PT WAS INCREASINGLY AGITATED. CALLED DR WARD FOR AN ORDER FOR ATIVAN. HE GAVE TELEPHONE ORDER FOR 1MG ATIVAN Q1HOUR PRN. 0245 FAMILY WAS NOTIFIED ABOUT PTS CONDITION BY MEETING/EVENT PLANNER. DPOA/DAUGHTER STATED TO LEAVE OFF BIPAP IF PT WAS FIGHTING IT, AND UNDERSTOOD THAT THIS MEANT THE PT COULD PASS AWAY. SHE SAID TO TRY NASAL CANULA AND IF HE FIGHTS IT, LEAVE IT OFF. SHE UNDERSTOOD THE OUTCOME OF THE SITUATION AND WAS OKAY WITH IT
[2018-03-24] MEDS ORDERED: RT-ALBUTEROL/IPRATROPIUM 3 ML (DUONEB) VIAL ONE (03:31)
[2018-03-24 04:00] VITALS: BP 94/53
--- NOTE | 2018-03-24 07:24 | Pulmonary Progress Note ---
DAVIDBRYAN Mcnally STUDENT 03/24/18 0724: Subjective Date Seen by a Provider: Mar 24, 2018 Subjective/Events-last exam Patient desated over night into the 80s and was put on bipap. His sats returned to the 90s. Patient's family stated to leave off bipap if patient was fighting it. Family states that he arouses every hour and is agitated and inconsolable. Review of Systems General: No Chills, No Night Sweats; Fatigue, Other (Agitated) Pulmonary: Dyspnea Neurological: Weakness, Confusion Sepsis Event Evaluation Height, Weight, BMI Height: 5'6.00" Weight: 98lbs. 12.8oz. 44.280951pq; 15.7 BMI Method:Estimated Focused Exam Lactate Level 03/22/18 02:25: Lactic Acid Level 4.07*H 03/22/18 05:06: Lactic Acid Level 0.98 Exam Exam Vital Signs Date Time Temp Pulse Resp B/P (MAP) Pulse Ox O2 Delivery O2 Flow Rate FiO2 03/24/18 06:19 62 20 70.00 03/24/18 04:14 70 99 100 03/24/18 04:07 70 29 99 100.00 03/24/18 04:00 98.0 65 25 94/53 (67) 98 NIV Bilevel 03/24/18 03:15 88 38 100.00 03/24/18 02:24 137 52 100.00 03/24/18 02:15 84 Vapotherm 6.00 100 03/24/18 02:00 82 Nasal Cannula 6.00 03/24/18 01:00 95 03/24/18 00:00 98.4 56 22 135/70 (91) 91 Nasal Cannula 5.00 03/23/18 20:30 98.0 51 20 126/62 (83) 94 Nasal Cannula 5.00 03/23/18 20:00 Nasal Cannula 6.00 03/23/18 19:00 60 03/23/18 16:55 97.1 50 20 121/52 (75) 95 Nasal Cannula 5.00 03/23/18 13:00 46 03/23/18 11:29 98.2 50 20 131/64 (86) 99 Nasal Cannula 5.00 03/23/18 11:20 97 Nasal Cannula 5.00 1/30/19 08:10 97.9 62 22 91/54 (66) 100 Nasal Cannula 5.00 03/23/18 08:00 Nasal Cannula 6.00 I & O 03/24/18 07:00 Intake Total 1270 ml Output Total 750 ml Balance 520 ml Height & Weight Height: 5'6.00" Weight: 98lbs. 12.8oz. 44.191299qs; 15.7 BMI Method:Estimated General Appearance: Chronically ill, Cachetic, Other (Resting comfortably on biPAP) HEENT: Pharynx Normal, Moist Mucous Membranes Neck: Normal Inspection Respiratory: Crackles, Respiratory Distress, Other (On BiPAP) Cardiovascular: Regular Rate, Rhythm, No Murmur Capillary Refill: Less Than 3 Seconds Gastrointestinal: normal bowel sounds, soft Extremity: No Calf Tenderness, No Pedal Edema Neurologic/Psychiatric: Alert; No Oriented x3; Disoriented Skin: Normal Color, Warm/Dry Results Lab Laboratory Tests 03/23/18 06:45 Assessment/Plan Assessment/Plan Acute on chronic respiratory failure -Currently on BiPAP with FiO2 70% due to desaturation overnight -On 4L at home Hx of severe oxygen dependent pulmonary fibrosis -Follows with Kip greenfield Sepsis with RUL pneumonia and influenza is positive -Continue Rocephin, and azithromycin and tamiflu Macrocytic anemia, stable -Monitor Bradycardia, hypotension -This is baseline per patient S/p fall -Fall precautions weakness, debility, confusion -Monitor -Palliative care consult and discussion with patient and family about hospice vs. other care options. Diagnosis/Problems Diagnosis/Problems (1) Acute and chronic respiratory failure Status: Acute Assessment & Plan: Improving On 5lpm currently DNR Pulm consulted, appreciate recs (2) Influenza B Status: Acute Assessment & Plan: Continue tamilfu Droplet precautions (3) CAP (community acquired pneumonia) Status: Acute Assessment & Plan: Rocephin and Azithromycin ordered Cultures ordered and pending Mildly hypotensive; at baseline Qualifiers: Qualified Codes: J18.1 - Lobar pneumonia, unspecified organism (4) Pulmonary fibrosis Status: Acute Assessment & Plan: baseline 4lpm NC Pulm consulted, appreciate recs Continue solu-medrol cachetic likely from pulm fibrosis Palliative care consulted PAUL MARIA DO 03/24/18 1031: Subjective Time Seen by a Provider: 10:26 Subjective/Events-last exam Pt is now on Vapotherm. He was not tolerating BiPAP. family at bedside. Assessment/Plan Assessment/Plan Acute on chronic respiratory failure -D/C Vapotherm and BiPAP -On 4L at home Hx of severe oxygen dependent pulmonary fibrosis -Follows with Kip greenfield Sepsis with RUL pneumonia and influenza is positive -D/c Rocephin, and azithromycin and tamiflu Macrocytic anemia, stable -Monitor Bradycardia, hypotension -This is baseline per patient S/p fall -Fall precautions weakness, debility, confusion -Monitor -Palliative care consult and discussion with patient and family about hospice vs. other care options. I discussed with family patients current status and options. They are ready to make him comfort care only. They are also ok with us d/cing Vapotherm and just placing patient on NC. They know he will most likely today but we will make him comfortable. BRYAN HERNANDEZ STUDENT Mar 24, 2018 07:24 PAUL MARIA DO Mar 24, 2018 10:31
[2018-03-24 08:00] VITALS: BP 88/62
--- NOTE | 2018-03-24 09:07 | NUR ---
THIS RT CALLED TO ROOM, BY DAVID THACKER TO REMOVE BIPAP PER FAMILY'S REQUEST. THIS RT QUESTIONED FAMILY TO WHAT THEY WOULD LIKE ME TO DO, TAKING BIPAP OFF, PLACING NASAL CANNULA, OR PLACING PT ON THE HIGH FLOW. THE DIFFERENCE WAS EXPLAINED TO THE PT'S FAMILY. PT NON-VERBAL ATT. FAMILY REQUESTED THAT THIS RT PLACE THEM ON VAPOTHERM. VAPO THERM WAS PLACED ON PT, WITH MAX SETTINGS,DUE TO AIR HUNGER. SP02 WAS NO HIGHER THAN 84% AT THAT TIME. THIS WAS EXPLAINED TO FAMILY. FAMILY WAS OKAY WITH THE LOW SP02. THIS RT ASKED IF THERE WAS ANYTHING ELSE THEY NEEDED. FAMILY DENIED. KIRSTIE HERNANDEZ INFORMED OF FAMILY'S DECISION.
--- NOTE | 2018-03-24 09:10 | NUR ---
DR. BROWN NOTIFIED OF FAMILIES REQUEST TO DC BIPAP AND REQUEST TO PLACE ON VAPOTHERM WITH SATS REMAINING IN LOW 80'S.
--- NOTE | 2018-03-24 09:22 | Progress Note-Hospitalist ---
Subjective HPI/CC On Admission Date Seen by Provider: Mar 24, 2018 Time Seen by Provider: 09:17 Pt is a 77yoCM with a PMH of pulmonary fibrosis who presented to the ER due to fall and hypoxia. He states he fell yesterday and was wedged between the wall and a chair and unable to get up. When his daughter found him she called EMS who found to him to have oxygen saturations in the 60s and brought him to the ER for evaluation. He states he is feeling better today but still short of breath with cough and sputum. He appears to be very short of breath but when asked about this he states that he is just "excited" from talking. His only other concern is getting to eat something. Subjective/Events-last exam Pt worsened from respiratory status overnight. He is agitated and does not respond to questions. Daughter and at bedside. Was on BiPAP but did not tolerate Focused Exam Lactate Level 03/22/18 02:25: Lactic Acid Level 4.07*H 03/22/18 05:06: Lactic Acid Level 0.98 Objective Exam Vital Signs Vital Signs Date Time Temp Pulse Resp B/P (MAP) Pulse Ox O2 Delivery O2 Flow Rate FiO2 03/24/18 08:00 98.3 70 24 88/62 (71) 100 NIV Bilevel 03/24/18 06:19 70.00 03/24/18 04:14 100 Capillary Refill : Less Than 3 Seconds General Appearance: Chronically ill, Cachetic, Other (appears agitated) Respiratory: Accessory Muscle Use Neurologic/Psychiatric: Alert, Other (arouses to verbal stimuli) Results/Procedures Lab Patient resulted labs reviewed. Imaging: Reviewed Imaging Report Assessment/Plan Assessment and Plan Assess & Plan/Chief Complaint Influenza and PNA Diagnosis/Problems Diagnosis/Problems (1) Pulmonary fibrosis Status: Acute Assessment & Plan: baseline 4lpm NC Pulm consulted, appreciate recs Continue solu-medrol until family elects comfort measures cachetic likely from pulm fibrosis Palliative care consulted (2) CAP (community acquired pneumonia) Status: Acute Assessment & Plan: Rocephin and Azithromycin ordered Cultures ordered and pending Mildly hypotensive; at baseline Qualifiers: Laterality: right Lung location: middle lobe of lung Qualified Codes: J18.1 - Lobar pneumonia, unspecified organism (3) Influenza B Status: Acute Assessment & Plan: Continue tamilfu Droplet precautions (4) Counseling regarding end of life decision making Assessment & Plan: Daughter (DPOA) and at bedside Discussed progression and the high level of support that Vapotherm is Recommended titration of oxygen quickly and if unable to tolerate transition to comfort measures only Clinical Quality Measures DVT/VTE Risk/Contraindication: Risk Factor Score Per Nursin RFS Level Per Nursing on Admit: 4+=Very High SRIDEVI BROWN MD Mar 24, 2018 09:22
[2018-03-24] MEDS: cefTRIAXone 1 GM/NS 50 ML IVPB IV SCH ×2 (09:34)
[2018-03-24] MEDS: OSELTAMIVIR 30 MG (TAMIFLU) CAPSULE PO SCH (09:34)
[2018-03-24] MEDS: AZITHROMYCIN 250 MG TAB (ZITHROMAX) PO SCH (09:34)
--- NOTE | 2018-03-24 09:58 | NUR ---
FAMILY REFUSED ASSESSMENT THEY DO NOT WANT PT DISTURBED. RESTING COMFORTABLY ON VAPOTHERM.
[2018-03-24] MEDS ORDERED: ARTIFICAL TEARS 0.4 ML UNIT DOSE (REFRESH PLUS) OU PRN (10:30)
[2018-03-24] MEDS ORDERED: RT-ALBUTEROL/IPRATROPIUM 3 ML (DUONEB) VIAL INH PRN (10:30)
[2018-03-24] MEDS ORDERED: morphine INJ 4 MG/ML 1 ML (VIAL/SYRINGE) IVP PRN (10:30)
[2018-03-24] MEDS ORDERED: PROMETHAZINE INJ 25 MG/ML (PHENERGAN) AMP IVP PRN (10:30)
[2018-03-24] MEDS ORDERED: ONDANSETRON 4 MG/2 ML (SDV) Z0FRAN IVP PRN (10:30)
[2018-03-24] MEDS ORDERED: SALIVA STIMULANT MOUTH SPRAY (BIOTENE) 1.5 OZ MM PRN (10:30)
--- NOTE | 2018-03-24 10:30 | NUR ---
DR. MARIA HERE AND TALKED WITH FAMILY. STATUS CHANGED TO COMFORT CARE. TELEMETRY DC'D. RT HERE AND VAPOTHERM REMOVED AND CHANGED TO NC @ 2L. MS 4MG IV FOR AIR HUNGER. FAMILY AT BEDSIDE.
--- NOTE | 2018-03-24 10:40 | NUR ---
ATIVAN 1MG IV FOR RESTLESSNESS AND AIR HUNGER.
--- NOTE | 2018-03-24 10:50 | NUR ---
PALLIATIVE CARE RN into room to see patient who is recently made CCMO, with discontinuation of Vapotherm and now on 2 L NC. Nursing had just given 4L PRN Morphine, he was still with furrowed brow and expiratory grunting, so she will give the PRN Ativan. Repositioned patient, put clean gown and top bed linens with the help of the PCCTs. By the time this was completed the Ativan was beginning to work. He was less furrowed and and grunting less by the end of my visit. Will continue to follow and assist as needed.
[2018-03-24] MEDS ORDERED: morphine INJ 4 MG/ML 1 ML (VIAL/SYRINGE) IVP ONE (11:20)
--- NOTE | 2018-03-24 11:20 | NUR ---
MS 2MG IV FOR AIR HUNGER. APPROVED FOR EARLY DOSE BY DR. BROWN.
[2018-03-24] MEDS ORDERED: LORazepam INJ 2 MG/ML (ATIVAN) VIAL ONE (11:40)
--- NOTE | 2018-03-24 11:45 | NUR ---
IV LOOSE AND PULLED OUT. RESTARTED WITH #22 LT WRIST X 1 STICK. ATIVAN 2MG IV FOR RESTLESSNESS AND AIR HUNGER.
--- NOTE | 2018-03-24 13:25 | NUR ---
ATIVAN 2MG IV FOR AIR HUNGER AND RESTLESSNESS. FAMILY FEELS ATIVAN WORKS BETTER THAN MORPHINE AND REQUESTED.
[2018-03-24] MEDS: GLYCOPYRROLATE 0.2 MG/ML (ROBINUL) 2 ML VIAL IV PRN (14:28)
[2018-03-24] MEDS: ATROPINE 1% OPHTHALMIC SOLN 2 ML SL PRN (14:30)
--- NOTE | 2018-03-24 15:45 | NUR ---
Pastoral care visit, pt non responsive, large family at bedside, offered support and encouragement and had collective prayer, family expressed appreciation for visit.
--- NOTE | 2018-03-24 18:00 | NUR ---
REMAINS UNRESPONSIVE WITH AGONAL RESPIRATIONS. HAVE OFFERED ATIVAN AND MS FREQUENTLY THIS PM, BUT FAMILY FEELS HE IS COMFORTABLE. DOES NOT APPEAR IN ANY DISTRESS. LARGE FAMILY AT BEDSIDE.
[2018-03-25] MEDS: LORazepam INJ 2 MG/ML (ATIVAN) VIAL IVP PRN ×4 (00:23→21:17)
[2018-03-25] MEDS: GLYCOPYRROLATE 0.2 MG/ML (ROBINUL) 2 ML VIAL IV PRN ×3 (05:13→14:19)
[2018-03-25] MEDS: morphine INJ 4 MG/ML 1 ML (VIAL/SYRINGE) IVP PRN (05:14)
--- NOTE | 2018-03-25 08:31 | Progress Note-Hospitalist ---
Subjective HPI/CC On Admission Date Seen by Provider: Mar 25, 2018 Time Seen by Provider: 08:24 Pt is a 77yoCM with a PMH of pulmonary fibrosis who presented to the ER due to fall and hypoxia. He states he fell yesterday and was wedged between the wall and a chair and unable to get up. When his daughter found him she called EMS who found to him to have oxygen saturations in the 60s and brought him to the ER for evaluation. He states he is feeling better today but still short of breath with cough and sputum. He appears to be very short of breath but when asked about this he states that he is just "excited" from talking. His only other concern is getting to eat something. Subjective/Events-last exam Pt is resting comfortably in bed. Family at bedside. No concerns. Objective Exam Vital Signs Vital Signs Date Time Temp Pulse Resp B/P (MAP) Pulse Ox O2 Delivery O2 Flow Rate FiO2 03/24/18 20:00 Nasal Cannula 2.00 03/24/18 08:00 98.3 70 24 88/62 (71) 100 03/24/18 04:14 100 Capillary Refill : Less Than 3 SecondsLess Than 3 Seconds General Appearance: No Apparent Distress, Chronically ill, Cachetic Respiratory: No Respiratory Distress Neurologic/Psychiatric: Other (arouses to physical stimuli, otherwise sleeping comfortably) Results/Procedures Lab Patient resulted labs reviewed. Imaging: Reviewed Imaging Report Assessment/Plan Assessment and Plan Assess & Plan/Chief Complaint Influenza and PNA Diagnosis/Problems Diagnosis/Problems (1) Need for comfort care Assessment & Plan: Transitioned to comfort measures yesterday Appears comfortable Continue BUSINESS REPORTING DEVELOPER orderset (2) Pulmonary fibrosis Status: Acute Assessment & Plan: End stage baseline 4lpm NC Pulm consulted, appreciate recs cachetic likely from pulm fibrosis Palliative care consulted Clinical Quality Measures DVT/VTE Risk/Contraindication: Risk Factor Score Per Nursin RFS Level Per Nursing on Admit: 4+=Very High SRIDEVI BROWN MD Mar 25, 2018 08:31
--- NOTE | 2018-03-25 09:10 | NUR ---
ROBINUL AND ATROPINE FOR INCREASED SECRETIONS.
[2018-03-25] MEDS: ATROPINE 1% OPHTHALMIC SOLN 2 ML SL PRN ×2 (09:12→14:15)
--- NOTE | 2018-03-25 10:30 | NUR ---
ATIVAN 2MG IV FOR AIR HUNGER.
--- NOTE | 2018-03-25 14:20 | NUR ---
ROBINUL AND ATROPINE FOR INCREASED SECRETIONS. ATIVAN 2MG IV FOR ANXIETY.
--- NOTE | 2018-03-25 14:43 | NUR ---
Pastoral care visit, family gathered round bed, coping well, sharing stories. I offered listening, support and prayer.
[2018-03-26] MEDS: morphine INJ 4 MG/ML 1 ML (VIAL/SYRINGE) IVP PRN (03:16)
--- NOTE | 2018-03-26 07:25 | NUR ---
THIS RN AND CARLOZ RN TO PT ROOM PER FAMILY REQUEST. PT RESPIRATIONS CEASED. APICAL HR AUSCULTATED BY THIS RN AND CARLOZ RN, NO APICAL HEARTBEAT NOTED. FAMILY REQUEST PASTORAL CARE AT THIS TIME. PASTORAL CARE TO BE NOTIFIED. PLEASE SEE INTERVENTIONS FOR FURTHER DOCUMENTATION.
--- NOTE | 2018-03-26 07:47 | Discharge Summary-Hospitalist ---
Discharge Summary Date of Admission Mar 22, 2018 at 05:25 Date of Discharge Discharge Date: Mar 26, 2018 Admission Diagnosis acute hypoxic respiratory failure, influenza Consults/Procedures Consulations Pulm- Dr Alvarado Comfort Measures/ End of Life Care: Comfort Measures Date of : Mar 26, 2018 Pt was admitted in respiratory distress secondary to baseline chronic respiratory failure from pulmonary fibrosis acutely worsened by influenza and pneumonia. He was treated with Tamiflu and antibiotics for superimposed baterial pneumonia. Despite this he continue to worsen and require BiPAP to maintain oxygenation. Discussions were had with patient and family and given his continued decline despite maximum therapy he elected to transition to comfort measures only. He was treated accordingly with the comfort care orderset per symptoms and he on 03/26/18. Discharge Diagnosis Influenza and PNA (1) Need for comfort care Assessment & Plan: Transitioned to comfort measures Appears comfortable Continue NEGATIVE DEVELOPER orderset (2) Pulmonary fibrosis Status: Acute Assessment & Plan: End stage baseline 4lpm NC Pulm consulted, appreciate recs cachetic likely from pulm fibrosis Palliative care consulted SRIDEVI BROWN MD Mar 26, 2018 07:47
--- NOTE | 2018-03-29 14:24 | Physician Query Clarification ---
PQ-Uncertain Diagnosis Admission/Discharge Admission Date: Mar 22, 2018 at 05:25 Discharge Date: Mar 26, 2018 at 07:30 The medical record reflects the following clinical scenario: History/Risk Factors: pneumonia, flu Clinical Findings: pneumonia, flu Treatment: Rocephin, azithromycin Question: Is SEPSIS a clinically valid diagnosis? SEPSIS was documented in the PULMONARY CONSULT AND PROGRESS NOTES with no further documentation in your notes or in the discharge summary. Please document a response below. PHYSICIAN RESPONSE Diagnosis clinically valid: No, conditon ruled out In responding to this query, please exercise your independent professional judgment. The purpose of this communication is to more accurately reflect the complexity of your patients condition. The fact that a question is asked does not imply that any particular answer is desired or expected. Thank you for your timely response to this clarification. Requestors name: [ ] Phone # [ ] THIS PHYSICIAN QUERY FORM IS A PERMANENT PART OF THE MEDICAL RECORD STEPHEN VALLES Mar 29, 2018 14:24 SRIDEVI BROWN MD Mar 30, 2018 09:48
== END 2018-03-26 07:30 | disposition expired | DRG 193 ==
LOC: EDUNIT# 02:13 → ER 02:19 → 4TH 05:25
PROVIDERS: ADMIT Internal Medicine; ATTEND Internal Medicine
DX: J18.1 Lobar pneumonia, unspecified organism (principal); J96.21 Acute and chronic respiratory failure with hypoxia; J10.00 Influenza due to other identified influenza virus with unspecified type of pneumonia; R64 Cachexia; J84.10 Pulmonary fibrosis, unspecified; Z66 Do not resuscitate; Z51.5 Encounter for palliative care; I25.10 Atherosclerotic heart disease of native coronary artery without angina pectoris; I25.2 Old myocardial infarction; D53.9 Nutritional anemia, unspecified; I48.91 Unspecified atrial fibrillation; E78.00 Pure hypercholesterolemia, unspecified; I10 Essential (primary) hypertension; G40.909 Epilepsy, unspecified, not intractable, without status epilepticus; K21.9 Gastro-esophageal reflux disease without esophagitis; R53.1 Weakness; R00.1 Bradycardia, unspecified; R41.0 Disorientation, unspecified; Z99.81 Dependence on supplemental oxygen; Z87.891 Personal history of nicotine dependence; Z95.1 Presence of aortocoronary bypass graft; Z91.81 History of falling
CPT/HCPCS: 36415; 51702; 71045; 71250; 72170; 74176; 80053; 80162; 80185; 81000; 82550; 82553; 83605; 83735; 83880; 84484; 85007; 85025; 85027; 85610; 85730; 87040; 87804; 93005; 93041; 94640; 94660; 94760; 96361; 96365